=== PATIENT | female | born 2000 | race African-American/Black ===

== ENCOUNTER 2020-01-20 08:19 | Emergency (ER) | payer SELFPAY ==
[2020-01-20] MEDS ORDERED: CEFTRIAXONE INJ 250 MG VIAL IM ONE (08:38)
[2020-01-20] MEDS ORDERED: AZITHROMYCIN 1 GM SUSP PACKET PO ONE (08:38)
[2020-01-20] MEDS ORDERED: LIDOCAINE 1% INJ (10 MG/ML) 10 ML MDV INJ ONE (08:39)
[2020-01-20] MEDS ORDERED: LIDOCAINE 1% INJ-PF (10 MG/ML) 30 ML SDV ONE (08:44)
[2020-01-20 09:08] LABS: APPEARANCE,URINE CLEAR; BILIRUBIN,URINE NEGATIVE (NEGATIVE); COLOR,URINE YELLOW; GLUCOSE, URINE NEGATIVE (NEGATIVE); KETONES,URINE NEGATIVE (NEGATIVE); LEUKOCYTE ESTERASE,URINE SMALL (NEGATIVE); NITRITE,URINE NEGATIVE (NEGATIVE); PROTEIN,URINE NEGATIVE (NEGATIVE); URINE SPECIFIC GRAVITY 1.012; UROBILINOGEN,URINE NEGATIVE mg/dL (<2.0)
--- NOTE | 2020-01-20 09:12 | ER Document Report ---
HPI - HPI Patient complains to provider of: Vaginal discharge Time Seen by Provider: 01/20/20 08:29 Onset: Last week Onset/Duration: Gradual Pain Level: 2 Context: Patient presents complaining of vaginal discharge that started last week. Patient is concerned about possible exposure to sexually transmitted infection would like to be tested. Patient denies any symptoms about . Associated Symptoms: denies: Fever, Vomiting Exacerbated by: Denies Relieved by: Denies Similar symptoms previously: No Recently seen / treated by doctor: No - ROS ROS below otherwise negative: Yes Systems Reviewed and Negative: Yes All other systems reviewed and negative - CONSTITUTIONAL Constitutional: DENIES: Fever, Chills - GASTROINTESTINAL Gastrointestinal: DENIES: Abdominal Pain, Nausea, Patient vomiting - REPRODUCTIVE Reproductive: REPORTS: Abnormal bleeding / discharge. DENIES: : - DERM Skin Color: Normal Skin Problems: None Past Medical History - General Information source: Patient - Social History Smoking Status: Never Smoker Frequency of alcohol use: None Drug Abuse: None Occupation: occupational therapist's assistant Family History: Reviewed & Not Pertinent Patient has homicidal ideation: No - Medical History Medical History: Negative Surgical Hx: Negative Vertical Provider Document - CONSTITUTIONAL Agree With Documented VS: Yes Exam Limitations: No Limitations General Appearance: WD/WN, No Apparent Distress - HEENT HEENT: Atraumatic, Normocephalic - NECK Neck: Normal Inspection, Supple. negative: Lymphadenopathy-Left, Lymph adenopathy-Right - RESPIRATORY Respiratory: Breath Sounds Normal, No Respiratory Distress - CARDIOVASCULAR Cardiovascular: Regular Rate, Regular Rhythm - GI/ABDOMEN Gastrointestinal: Abdomen Soft, Abdomen Non-Tender - REPRODUCTIVE Female Genitalia: negative: Adnexal Pain-Right, Adnexal Pain-Left Notes: +vag discharge - BACK Back: Normal Inspection. negative: CVA Tenderness-Right, CVA Tenderness-Left - MUSCULOSKELETAL/EXTREMETIES Musculoskeletal/Extremeties: MAEW, FROM - NEURO Level of Consciousness: Awake, Alert, Appropriate Motor/Sensory: No Motor Deficit - DERM Integumentary: Warm, Dry, No Rash Course - Vital Signs Vital signs: Temp Pulse Resp BP Pulse Ox 97.7 F 78 16 116/68 100 01/20/20 08:38 01/20/20 08:24 01/20/20 08:24 01/20/20 08:24 01/20/20 08:24 - Laboratory Laboratory results interpreted by me: 01/20/20 08:51 Ur Leukocyte Esterase SMALL H Urine Ascorbic Acid 20 H 01/20/20 09:45 Labs- Entire Visit 01/20/20 01/20/20 08:51 09:10 Urine Color YELLOW Urine Appearance CLEAR Urine pH 5.0 Ur Specific Dickens 1.012 Urine Protein NEGATIVE Urine Glucose (UA) NEGATIVE Urine Ketones NEGATIVE Urine Blood NEGATIVE Urine Nitrite NEGATIVE Urine Bilirubin NEGATIVE Urine Urobilinogen NEGATIVE Ur Leukocyte Esterase SMALL H Urine WBC (Auto) 1 Urine RBC (Auto) 1 Urine Bacteria (Auto) TRACE Squamous Epi Cells Auto 3 Urine Mucus (Auto) RARE Urine Ascorbic Acid 20 H Urine HCG, Qual NEGATIVE Epi Cells (Wet Prep) 3+ EPITHELIALS SEEN Trichomonas (Wet Prep) NO TRICHOMONAS SEEN Vaginal WBC 2+ WBCS SEEN Vaginal RBC FEW RBCS SEEN Vaginal Yeast NO YEAST SEEN Discharge - Discharge Clinical Impression: Concern about STD in female without diagnosis, Vaginal discharge Condition: Stable Disposition: HOME, SELF-CARE Instructions: Azithromycin ([facility]), Rocephin ([facility]) Additional Instructions: Return immediately for any new or worsening symptoms Followup with your primary care provider, call tomorrow to make a followup appointment Cultures are pending, we will call if you need any different treatment
[2020-01-20 09:35] LABS: EPITHELIALS (WET MOUNT) 3+ EPITHELIALS SEEN; RBCS (WET MOUNT) FEW RBCS SEEN; T.VAGINALIS (WET MOUNT) NO TRICHOMONAS SEEN; WBCS (WET MOUNT) 2+ WBCS SEEN; YEAST (WET MOUNT) NO YEAST SEEN
[2020-01-20 09:54] VITALS: BP 116/58
[2020-01-20 11:05] LABS: CHLAM PCR NOT DETECTED (NOT DETECT)
== END 2020-01-20 09:54 | disposition home or self-care (01) ==
LOC: ER 08:19
DX: N89.8 Other specified noninflammatory disorders of vagina (principal); Z20.2 Contact with and (suspected) exposure to infections with a predominantly sexual mode of transmission
CPT/HCPCS: 99283; 96372; 87210; 81025; 81001; 87491; 87591; Q0144; J0696

== ENCOUNTER 2020-03-28 19:05 | Emergency (ER) | payer SELFPAY | END 2020-03-28 23:15 | disposition left against medical advice (07) | LOC: ER 19:05 | DX: Z53.21 Procedure and treatment not carried out due to patient leaving prior to being seen by health care provider (principal) ==

== ENCOUNTER 2020-03-29 03:55 | Emergency (ER) | payer SELFPAY ==
[2020-03-29 04:33] VITALS: BP 103/63
--- NOTE | 2020-03-29 04:54 | ER Document Report ---
ED General - General Stated Complaint: FEVER/SORE THROAT/ABDOMINAL PAIN Time Seen by Provider: 03/29/20 04:50 Mode of Arrival: Ambulatory Information source: Patient Notes: Patient is a 20-year-old female presenting to the emergency department chief complaint of fever and sore throat. Patient states the fever started this evening at about 5 PM and at that time it was 101 she states that she took some Tylenol and the fever seemed to go down but then at 2 AM she woke up because of a sore throat and checked her temperature and found it to be 100 degrees orally. Patient is here for further evaluation and treatment. 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 Her son similarly has a fever but it has resolved. Patient denies nausea vomiting diarrhea TRAVEL OUTSIDE OF THE [place] IN LAST 30 DAYS: No - HPI Onset: This evening Onset/Duration: Gradual, Persistent Quality of pain: Achy, Pressure Severity: Mild Pain Level: 1 Associated symptoms: Nonproductive cough, Fever, Sore throat. denies: Diarrhea, Nausea, Vomiting Exacerbated by: Denies Relieved by: Denies Similar symptoms previously: No Recently seen / treated by doctor: No - Related Data Allergies/Adverse Reactions: No Known Allergies Allergy (Verified 01/20/20 08:37) Past Medical History - General Information source: Patient - Social History Smoking Status: Never Smoker Chew tobacco use (# tins/day): No Frequency of alcohol use: None Drug Abuse: None Lives with: Family Family History: Reviewed & Not Pertinent Patient has suicidal ideation: No Patient has homicidal ideation: No - Medical History Medical History: Negative Review of Systems - Review of Systems Notes: REVIEW OF SYSTEMS: CONSTITUTIONAL : Per HPI EENT: Per HPI CARDIOVASCULAR: Denies chest pain. RESPIRATORY: Denies cough, cold, or chest congestion. Denies shortness of breath, difficulty breathing, or wheezing. GASTROINTESTINAL: Denies abdominal pain. Denies nausea, vomiting, or diarrhea. Denies constipation. GENITOURINARY: Denies difficulty urinating, painful urination, burning, frequency, or blood in urine. MUSCULOSKELETAL: Denies neck or back pain or joint pain or swelling. SKIN: Denies rash or skin lesions. HEMATOLOGIC : Denies easy bruising or bleeding. NEUROLOGICAL: Denies altered mental status or loss of consciousness. Denies headache. Denies weakness or paralysis or loss of use of either side. Denies problems with gait or speech. Denies sensory or motor loss. PSYCHIATRIC: Denies suicidal or homicidal ideations 10 Systems are negative unless otherwise specified above Physical Exam - Vital signs Vitals: Temp Pulse Resp BP Pulse Ox 99.2 F 97 16 124/65 97 03/29/20 04:09 03/29/20 04:09 03/29/20 04:09 03/29/20 04:09 03/29/20 04:09 - Notes Notes: PHYSICAL EXAMINATION: GENERAL: Well-appearing, well-nourished and in no acute distress. HEAD: Atraumatic, normocephalic. EYES: Pupils equal round and reactive to light, extraocular movements intact, sc mana anicteric, conjunctiva are normal. ENT: nares patent, oropharynx clear without exudates, there is mild left-sided erythema however. Moist mucous membranes. NECK: Normal range of motion, supple with positive left-sided anterior cervical lymphadenopathy, no appreciable JVD LUNGS: Lungs clear to auscultation bilaterally and equal. No wheezes rales or rhonchi. HEART: Regular rate and rhythm without murmurs ABDOMEN: Soft, nontender, normal bowel sounds. No guarding, no rebound. No masses appreciated. EXTREMITIES: Active full range of motion, no pitting or edema. No cyanosis. 2+ pulses x4 NEUROLOGICAL: No focal neurological deficits. Moves all extremities spontaneously and on command. SKIN: Warm, Dry, and intact. Normal turgor, no rashes or lesions noted. Course - Re-evaluation Re-evalutation: 03/29/20 04:54 Patient's fever has subsided. Rapid strep test will be obtained. 03/29/20 06:04 On reevaluation the patient is resting comfortably in hospital bed. There is still no result from the patient's rapid strep test laboratory was called and states that there was an error in receiving the test and they will get it done in the next 15 minutes. 03/29/20 06:29 Rapid strep test is negative. Patient will be advised of same discharged home subsequent follow-up through primary care provider as needed. - Vital Signs Vital signs: Temp Pulse Resp BP Pulse Ox 98.9 F 89 15 103/63 97 03/29/20 04:32 03/29/20 04:32 03/29/20 04:32 03/29/20 04:32 03/29/20 04:32 Discharge - Discharge Clinical Impression: Cough, Viral syndrome Fever Qualifiers: Fever type: unspecified Qualified Code(s): R50.9 - Fever, unspecified Condition: Stable Disposition: HOME, SELF-CARE Instructions: Fever ([facility]), Acetaminophen, Viral Syndrome ([facility]) Forms: Return to Work
== END 2020-03-29 06:40 | disposition home or self-care (01) ==
LOC: ER 03:55
DX: J02.9 Acute pharyngitis, unspecified (principal); B34.9 Viral infection, unspecified; R50.9 Fever, unspecified; R10.9 Unspecified abdominal pain; R05 Cough
CPT/HCPCS: 87070; 87880; 99283